=== PATIENT | female | born 2000 | race Two or more races ===

== ENCOUNTER → 2023-11-02 | Emergency (ER) | payer OTHER ==
[~2023-11-02] VITALS: Ht 160 cm; Wt 49.9 kg
== END | disposition home or self-care (01) ==
LOC: ER 12:36
DX: S09.8XXA Other specified injuries of head, initial encounter (principal); W10.8XXA Fall (on) (from) other stairs and steps, initial encounter; Y93.89 Activity, other specified; Y92.89 Other specified places as the place of occurrence of the external cause; Y99.8 Other external cause status